=== PATIENT | male | born 1980 | race Two or more races ===

== ENCOUNTER → 2017-04-12 | Outpatient (REF) | payer OTHER ==
[2017-04-12 19:13] LABS: ALBUMIN 4.4 GM/DL (3.2-5.2); ALBUMIN/GLOBULIN RATIO 1.22 (1.00-1.93); ALKALINE PHOSPHATASE 50 U/L (45-117); ALT/SGPT 151 U/L (12-78); AST/SGOT 66 U/L (7-37); BILIRUBIN,DIRECT 0.3 MG/DL (0.0-0.2); BILIRUBIN,TOTAL 1.6 MG/DL (0.2-1.0); CHOLESTEROL LEVEL 124 MG/DL (<200); MAGNESIUM LEVEL 2.1 MG/DL (1.8-2.4); TRIGLYCERIDES LEVEL 136 MG/DL (<150)
== END ==
LOC: M SFHCPLAZ 15:27
DX: R00.2 Palpitations (principal); Z82.49 Family history of ischemic heart disease and other diseases of the circulatory system; Z87.898 Personal history of other specified conditions
CPT/HCPCS: 36415

== ENCOUNTER → 2017-05-10 | Outpatient (REF) | payer OTHER ==
[2017-05-10 18:56] LABS: INR 0.99; PROTHROMBIN TIME 13.2 SECONDS (12.4-14.5)
[2017-05-10 19:21] LABS: ALBUMIN 4.6 GM/DL (3.2-5.2)
[2017-05-12 08:07] LABS: HEPATITIS B CORE ANTIBODY IGG Negative (Negative)
[2017-05-12 10:22] LABS: HEPATITIS C VIRUS ABY INDEX < 0.0 INDEX (<0.8)
== END ==
LOC: M SFHCPLAZ 16:06
DX: E80.6 Other disorders of bilirubin metabolism (principal); R74.0 Nonspecific elevation of levels of transaminase and lactic acid dehydrogenase [LDH]
CPT/HCPCS: 86704

== ENCOUNTER → 2017-06-01 | Outpatient (CLI) | payer OTHER | LOC: M RAD 08:23 | DX: R74.0 Nonspecific elevation of levels of transaminase and lactic acid dehydrogenase [LDH] (principal) | CPT/HCPCS: 76705 ==

== ENCOUNTER → 2017-08-04 | Outpatient (REF) | payer OTHER ==
[2017-08-04 16:36] LABS: FERRITIN 487 NG/ML (26-388)
[2017-08-04 16:36] LABS: IRON (FE) 146 UG/DL (65-175)
[2017-08-08 00:08] LABS: ANTI-MITOCHONDRIAL ANTIBODY 8.1 Units (0.0-20.0); CERULOPLASMIN 17.2 mg/dL (16.0-31.0); TRANSFERRIN 232 mg/dL (200-370)
[2017-08-08 00:08] LABS: ANTI-SMOOTH MUSCLE ANTIBODY 12 Units (0-19)
== END ==
LOC: M SFHCPLAZ 13:33
DX: E80.6 Other disorders of bilirubin metabolism (principal)

== ENCOUNTER → 2017-08-08 | Outpatient (REF) | payer OTHER ==
[2017-08-08 16:21] LABS: ALBUMIN 4.1 GM/DL (3.2-5.2); ALBUMIN/GLOBULIN RATIO 1.21 (1.00-1.93); ALKALINE PHOSPHATASE 44 U/L (45-117); ALT/SGPT 78 U/L (12-78); AST/SGOT 30 U/L (7-37); BILIRUBIN,DIRECT 0.3 MG/DL (0.0-0.2); BILIRUBIN,TOTAL 1.5 MG/DL (0.2-1.0); IRON (FE) 118 UG/DL (65-175); PERCENT SATURATION 37.1 % (19.7-50.0); TOTAL IRON BINDING CAPACITY 318 UG/DL (250-450); TOTAL PROTEIN 7.5 GM/DL (6.4-8.2)
== END ==
LOC: M SFHCPLAZ 12:25
DX: E80.6 Other disorders of bilirubin metabolism (principal)

== ENCOUNTER → 2017-09-27 | Outpatient (REF) | payer OTHER | LOC: M SFHCPLAZ 09:25 | DX: Z13.1 Encounter for screening for diabetes mellitus (principal) ==

== ENCOUNTER → 2018-02-15 | Outpatient (CLI) | payer OTHER | LOC: M SLEEP HO 14:06 | DX: R40.0 Somnolence (principal) | CPT/HCPCS: G0399 ==

== ENCOUNTER → 2018-09-20 | Outpatient (REF) | payer OTHER ==
[~2018-09-20] MED LIST: PERCOCET PO
[2018-09-20 18:07] LABS: ALBUMIN 4.1 GM/DL (3.2-5.2); ALT/SGPT 103 U/L (12-78); BILIRUBIN,TOTAL 1.3 MG/DL (0.2-1.0); BLOOD UREA NITROGEN 10 MG/DL (7-18); CALCIUM LEVEL 9.4 MG/DL (8.5-10.1); CARBON DIOXIDE LEVEL 30 MEQ/L (21-32); CHLORIDE LEVEL 103 MEQ/L (98-107); CREATININE FOR GFR 0.81 MG/DL (0.70-1.30); FREE T4 1.06 NG/DL (0.76-1.46); GLOMERULAR FILTRATION RATE > 60.0 (>60); GLUCOSE, FASTING 92 MG/DL (70-100); POTASSIUM SERUM 4.6 MEQ/L (3.5-5.1); SODIUM LEVEL 139 MEQ/L (136-145); TOTAL PROTEIN 8.1 GM/DL (6.4-8.2)
== END ==
LOC: M SFHCPLAZ 14:52
PROVIDERS: ATTEND Family Medicine
DX: Z13.1 Encounter for screening for diabetes mellitus (principal); R63.5 Abnormal weight gain